=== PATIENT | female | born 1970 | race Caucasian/White ===

== ENCOUNTER 2016-12-09 06:16 | Day surgery (SDC) | payer OTHER ==
[~2016-12-09] VITALS: Ht 165.1 cm; Wt 73.6 kg
[~2016-12-09 06:16] MED LIST: CALC-649; FOLI0.4T2; PREN-39
[2016-12-09 06:43] VITALS: Ht 165.1 cm; Wt 73.6 kg
[2016-12-09] MEDS ORDERED: VITAMINS (06:57)
[2016-12-09] MEDS ORDERED: GABAPENTIN DAILY (06:57)
[2016-12-09] MEDS ORDERED: OMEP20CA16 PO (06:57)
[2016-12-09 07:00] VITALS: BP 107/67; PULSE 67; RESP 18
--- NOTE | 2016-12-09 07:46 | OPPN ---
Date/Time of Note Date/Time of Note DATE: 12/09/16 TIME: 07:44 Operative Report Preoperative Diagnosis abdominal pain GERD Postoperative Diagnosis gastritis hiatal hernia GERD Operation/Procedure Performed EGD and biopsy Provider: PERRI MCCLURE MD Anesthesia Type: moderate sedation Estimated blood loss: none Transfusion Required: no Specimens gastric biopsy Grafts/Implants: none Complications: no PERRI MCCLURE MD Dec 09, 2016 07:46
[2016-12-09] MEDS ORDERED: MIDAZOLAM 1 MG/ML 2 ML INJ ONE ×2 (07:50)
[2016-12-09] MEDS ORDERED: FENTAnyl 50 MCG/ML VIAL ONE (07:50)
[2016-12-09 08:05] VITALS: BP 105/59; RESP 18
--- NOTE | 2016-12-09 09:41 | GILP ---
DATE OF PROCEDURE: 12/09/2016 SURGEON: Sourav Cristina MD. PROCEDURE: Esophagogastroduodenoscopy and biopsy. PREOPERATIVE DIAGNOSES: 1. Abdominal pain. 2. Chronic heartburn. POSTOPERATIVE DIAGNOSES: 1. Hiatal hernia. 2. Gastroesophageal reflux disease. 3. Gastritis with erosions. 4. Gastric mucosal biopsies were taken for Helicobacter pylori test. INDICATION: Ms. Breanna Acevedo is a 46-year-old female patient who had upper abdominal pain and chronic heartburn not responding to therapy. The patient was scheduled for endoscopy examination for further evaluation. The procedure and possible complications were well explained to the patient. The patient understood and consented to the procedure. DESCRIPTION OF PROCEDURE: Under the influence of fentanyl and Versed, the gastroscope was carefully introduced into the esophagus and under direct vision, it was advanced to the stomach, into the pylorus, into the duodenal bulb, and descending duodenum. FINDINGS: ESOPHAGUS: The mucosa was normal. The patient had hiatal hernia and gastroesophageal reflux disease. STOMACH: The patient had gastritis with erosions. Gastric mucosal biopsies were taken for Helicobacter pylori test. Duodenum was normal. She tolerated the procedure very well. There was no complication from the procedure. At the end of procedure, she was awake with stable vital signs and she was discharged home in care of her family. IMPRESSION: 1. Hiatal hernia. 2. Gastroesophageal reflux disease. 3. Gastritis with erosions. 4. Gastric mucosal biopsies were taken for Helicobacter pylori test. PLAN: 1. Continue omeprazole. 2. Add Zantac 300 mg orally at bedtime 3. Await Helicobacter pylori test report. Dictated By: MD SUZANNE Andrade/mitesh/tracy /Document#: [id number]
== END 2016-12-09 12:03 | disposition home or self-care (01) ==
LOC: GIL 06:16
PROVIDERS: ATTEND Internal Medicine Gastroenterology
DX: R12 Heartburn (principal); K21.9 Gastro-esophageal reflux disease without esophagitis; K29.60 Other gastritis without bleeding
CPT/HCPCS: 43239; 87081; J2250; J3010; Z7610

== ENCOUNTER 2017-07-10 19:53 | Emergency (ER) | END 2017-07-11 04:54 | disposition home or self-care (01) ==